=== PATIENT | female | born 1950 | race Caucasian/White ===

== ENCOUNTER 2021-01-27 09:12 | Outpatient (REF) | payer MEDICARE, SELFPAY ==
[2021-01-27 09:38] LABS: MANUAL DIFF FLAG NO
[2021-01-27 10:00] LABS: Basophils Percent Auto 0.5 % (0-2); Eosinophils Absolute Auto 0.2 X10*3/uL (0.0-0.4); Eosinophils Percent Auto 3.7 % (0-4); Hematocrit 40.4 % (37-47); Hemoglobin 13.9 g/dl (12.0-16.0); Imm Gran Abs Auto 0.01 X10*3/uL (0.00-0.03); Imm Gran Pct Auto 0.2 % (0.0-0.4); Lymphocytes Absolute Auto 2.1 X10*3/uL (1.2-4.9); Lymphocytes Percent Auto 32.7 % (20-40); Mean Corpuscular HGB Conc 34.4 g/dl (31.0-35.0); Mean Corpuscular Volume 101.8 fL (80-98); Mean Platelet Volume 9.6 fL (9.4-12.3); Monocytes Absolute Auto 0.6 X10*3/uL (0.1-1.2); Monocytes Percent Auto 8.6 % (2-11); Neutrophils Absolute Auto 3.5 X10*3/uL (2.0-8.3); Neutrophils Percent Auto 54.3 % (45-73); Platelet Count 261 X10*3/uL (160-400); Red Blood Count 3.97 X10*6/uL (4.20-5.50); Red Cell Distribution Width 12.2 % (11.0-16.0); White Blood Count 6.4 X10*3/uL (4.8-10.8)
[2021-01-27 10:13] LABS: Alanine Aminotransferase 15 U/L (0-31); Albumin Level 4.1 g/dL (3.5-5.0); Alkaline Phosphatase 55 U/L (39-117); Anion Gap 16 (12-20); Aspartate Amino Transferase 20 U/L (5-31); Bilirubin Total 0.8 mg/dL (0.0-1.0); Blood Urea Nitrogen 10 mg/dL (9-16); Calcium 9.9 mg/dL (8.4-10.2); Carbon Dioxide 29 mmol/L (22-29); Chloride 102 mmol/L (96-108); Cholesterol 199 mg/dL; Estimated Glomerular Filt Rate > 60; Glucose Fasting 85 mg/dL (60-99); HDL Cholesterol 99 mg/dL; LDL Cholesterol Calculated 93 mg/dl; Potassium 4.8 mmol/L (3.3-5.1); Sodium 142 mmol/L (135-145); Total Protein 6.5 g/dL (6.5-8.0); Triglycerides 37 mg/dL
== END 2021-01-27 09:13 | disposition home or self-care (01) ==
LOC: HO.LAB 09:12
PROVIDERS: PCP Internal Medicine Medical Oncology; Visit Provider Internal Medicine Medical Oncology
DX: D72.819 Decreased white blood cell count, unspecified (principal); E66.3 Overweight; K57.92 Diverticulitis of intestine, part unspecified, without perforation or abscess without bleeding
CPT/HCPCS: 36415; 80053; 80061; 85025

== ENCOUNTER 2022-02-01 08:45 | Outpatient (REF) | payer MEDICARE, SELFPAY ==
[2022-02-01 08:56] LABS: MANUAL DIFF FLAG NO
[2022-02-01 09:17] LABS: Basophils Percent Auto 0.6 % (0-2); Eosinophils Absolute Auto 0.2 X10*3/uL (0.0-0.4); Eosinophils Percent Auto 3.8 % (0-4); Imm Gran Abs Auto 0.01 X10*3/uL (0.00-0.03); Imm Gran Pct Auto 0.2 % (0.0-0.4); Lymphocytes Absolute Auto 2.4 X10*3/uL (1.2-4.9); Lymphocytes Percent Auto 45.2 % (20-40); Mean Corpuscular HGB Conc 34.1 g/dl (31.0-35.0); Mean Corpuscular Hemoglobin 34.3 pg (27.0-33.0); Mean Corpuscular Volume 100.5 fL (80.0-98.0); Mean Platelet Volume 9.5 fL (9.4-12.3); Monocytes Absolute Auto 0.5 X10*3/uL (0.1-1.2); Monocytes Percent Auto 8.7 % (2-11); Neutrophils Absolute Auto 2.2 x10*3/uL (2.0-8.3); Neutrophils Percent Auto 41.5 % (45-73); Platelet Count 261 X10*3/uL (160-400); Red Blood Count 4.08 X10*6/uL (4.20-5.50); Red Cell Distribution Width 12.1 % (11.0-16.0); White Blood Count 5.2 X10*3/uL (4.8-10.8)
[2022-02-01 09:48] LABS: Alanine Aminotransferase 17 U/L (0-31); Albumin Level 4.3 g/dL (3.5-5.0); Alkaline Phosphatase 59 U/L (39-117); Anion Gap 14 (12-20); Aspartate Amino Transferase 18 U/L (5-31); Bilirubin Total 0.5 mg/dL (0.0-1.0); Blood Urea Nitrogen 15 mg/dL (9-16); Calcium 9.8 mg/dL (8.4-10.2); Carbon Dioxide 29 mmol/L (22-29); Chloride 104 mmol/L (96-108); Cholesterol 217 mg/dL; Estimated Glomerular Filt Rate > 60; Glucose Fasting 90 mg/dL (60-99); HDL Cholesterol 93 mg/dL; LDL Cholesterol Calculated 115 mg/dl; Potassium 4.7 mmol/L (3.3-5.1); Sodium 142 mmol/L (135-145); Total Protein 7.1 g/dL (6.5-8.0); Triglycerides 46 mg/dL
[2022-02-01 10:07] LABS: Vitamin D 25-OH Total 50.4 ng/mL (>30)
== END 2022-02-01 08:46 | disposition home or self-care (01) ==
LOC: HO.LAB 08:45
PROVIDERS: PCP Internal Medicine Medical Oncology; Visit Provider Internal Medicine Medical Oncology
DX: E66.3 Overweight (principal); M85.80 Other specified disorders of bone density and structure, unspecified site
CPT/HCPCS: 36415; 80053; 80061; 82306; 85025

== ENCOUNTER 2022-05-17 10:49 | Outpatient (REF) | payer MEDICARE, SELFPAY ==
[2022-05-17 13:55] LABS: MANUAL DIFF FLAG NO
[2022-05-17 13:58] LABS: Basophils Percent Auto 0.6 % (0-2); Eosinophils Absolute Auto 0.2 X10*3/uL (0.0-0.4); Eosinophils Percent Auto 2.4 % (0-4); Hematocrit 42.4 % (37.0-47.0); Hemoglobin 14.8 g/dl (12.0-16.0); Imm Gran Abs Auto 0.02 X10*3/uL (0.00-0.03); Imm Gran Pct Auto 0.3 % (0.0-0.4); Lymphocytes Percent Auto 28.9 % (20-40); Mean Corpuscular HGB Conc 34.9 g/dl (31.0-35.0); Mean Corpuscular Hemoglobin 34.3 pg (27.0-33.0); Mean Corpuscular Volume 98.1 fL (80.0-98.0); Mean Platelet Volume 10.1 fL (9.4-12.3); Monocytes Absolute Auto 0.7 X10*3/uL (0.1-1.2); Monocytes Percent Auto 9.3 % (2-11); Neutrophils Absolute Auto 4.1 x10*3/uL (2.0-8.3); Neutrophils Percent Auto 58.5 % (45-73); Platelet Count 343 X10*3/uL (160-400); Red Blood Count 4.32 X10*6/uL (4.20-5.50); Red Cell Distribution Width 11.9 % (11.0-16.0)
[2022-05-17 16:21] LABS: Alanine Aminotransferase 15 U/L (0-31); Albumin Level 4.3 g/dL (3.5-5.0); Alkaline Phosphatase 64 U/L (39-117); Anion Gap 13 (12-20); Aspartate Amino Transferase 16 U/L (5-31); Bilirubin Total 1.1 mg/dL (0.0-1.0); Blood Urea Nitrogen 12 mg/dL (9-16); Calcium 10.1 mg/dL (8.4-10.2); Carbon Dioxide 28 mmol/L (22-29); Chloride 104 mmol/L (96-108); Cholesterol 202 mg/dL; Estimated Glomerular Filt Rate > 60; Glucose Fasting 91 mg/dL (60-99); HDL Cholesterol 76 mg/dL; LDL Cholesterol Calculated 112 mg/dl; Potassium 4.1 mmol/L (3.3-5.1); Sodium 141 mmol/L (135-145); Total Protein 6.9 g/dL (6.5-8.0); Triglycerides 72 mg/dL
== END 2022-05-17 10:50 | disposition home or self-care (01) ==
LOC: HO.10HDL 10:49
PROVIDERS: Visit Provider Internal Medicine Medical Oncology
DX: M85.80 Other specified disorders of bone density and structure, unspecified site (principal); M10.9 Gout, unspecified; E55.9 Vitamin D deficiency, unspecified
CPT/HCPCS: 36415; 80053; 80061; 82306; 85025

== ENCOUNTER 2022-08-02 10:25 | Outpatient (REF) | payer MEDICARE, SELFPAY ==
[2022-08-02 10:39] LABS: MANUAL DIFF FLAG NO
[2022-08-02 11:39] LABS: Basophils Percent Auto 0.8 % (0-2); Eosinophils Absolute Auto 0.2 X10*3/uL (0.0-0.4); Eosinophils Percent Auto 4.2 % (0-4); Hematocrit 41.1 % (37.0-47.0); Imm Gran Abs Auto 0.01 X10*3/uL (0.00-0.03); Imm Gran Pct Auto 0.2 % (0.0-0.4); Lymphocytes Absolute Auto 1.9 X10*3/uL (1.2-4.9); Lymphocytes Percent Auto 38.3 % (20-40); Mean Corpuscular HGB Conc 34.1 g/dl (31.0-35.0); Mean Corpuscular Hemoglobin 33.8 pg (27.0-33.0); Mean Corpuscular Volume 99.3 fL (80.0-98.0); Mean Platelet Volume 9.5 fL (9.4-12.3); Monocytes Absolute Auto 0.5 X10*3/uL (0.1-1.2); Monocytes Percent Auto 10.5 % (2-11); Neutrophils Absolute Auto 2.3 x10*3/uL (2.0-8.3); Platelet Count 261 X10*3/uL (160-400); Red Blood Count 4.14 X10*6/uL (4.20-5.50); Red Cell Distribution Width 12.7 % (11.0-16.0)
[2022-08-02 12:37] LABS: Alanine Aminotransferase 15 U/L (0-31); Albumin Level 4.1 g/dL (3.5-5.0); Alkaline Phosphatase 59 U/L (39-117); Anion Gap 10 (12-20); Aspartate Amino Transferase 18 U/L (5-31); Bilirubin Total 0.8 mg/dL (0.0-1.0); Blood Urea Nitrogen 15 mg/dL (9-16); Calcium 9.5 mg/dL (8.4-10.2); Carbon Dioxide 31 mmol/L (22-29); Chloride 104 mmol/L (96-108); Cholesterol 209 mg/dL; Estimated Glomerular Filt Rate > 60; Glucose Fasting 81 mg/dL (60-99); HDL Cholesterol 90 mg/dL; LDL Cholesterol Calculated 111 mg/dl; Potassium 4.3 mmol/L (3.3-5.1); Sodium 141 mmol/L (135-145); Total Protein 6.5 g/dL (6.5-8.0); Triglycerides 41 mg/dL
== END 2022-08-02 10:26 | disposition home or self-care (01) ==
LOC: HO.LAB 10:25
PROVIDERS: PCP Internal Medicine Medical Oncology; Visit Provider Internal Medicine Medical Oncology
DX: M85.80 Other specified disorders of bone density and structure, unspecified site (principal); E66.3 Overweight; M10.9 Gout, unspecified; D72.819 Decreased white blood cell count, unspecified
CPT/HCPCS: 36415; 80053; 80061; 85025

== ENCOUNTER 2022-10-10 12:24 | Outpatient (REF) | payer MEDICARE, SELFPAY ==
[2022-10-10 14:31] LABS: Appearance Urine Clear; Color Urine Yellow; Glucose Urine UA Negative (Negative); Leukocyte Esterase Urine Large (3+) (Negative); Nitrite Urine Negative (Negative); Specific Gravity - Urine 1.015 (1.005-1.025); UMIC TRIGGER UA YES; Urine Blood Trace (Negative); Urine Ketones Trace mg/dL (Negative); Urine Protein Trace mg/dL (Neg-Trace)
[2022-10-10 14:34] LABS: Bacteria Urine 4+ (None Seen); Hyaline Casts Urine 0-2 /LPF (0-2); RBC Urine 0-2 /HPF (0-2); Squamous Epithelial Cell Urine 0-2 /HPF (0-2); WBC Urine >50 /HPF (0-5)
== END 2022-10-10 12:25 | disposition home or self-care (01) ==
LOC: HO.LAB 12:24
PROVIDERS: PCP Internal Medicine Medical Oncology; Visit Provider Internal Medicine Medical Oncology
DX: R31.9 Hematuria, unspecified (principal)
CPT/HCPCS: 81001; 87086; 87088; 87186

== ENCOUNTER 2023-12-25 11:44 | Outpatient (REF) | payer MEDICARE, SELFPAY ==
[2023-12-25 13:30] LABS: Appearance Urine Clear; Color Urine Yellow; Glucose Urine UA Negative (Negative); Leukocyte Esterase Urine Negative (Negative); Nitrite Urine Negative (Negative); PH 6.5 (5.0-9.0); Specific Gravity - Urine <= 1.005 (1.005-1.025); Urine Blood Negative (Negative); Urine Ketones Negative (Negative); Urine Protein Negative (Neg-Trace)
[2023-12-25 13:31] LABS: MANUAL DIFF FLAG NO
[2023-12-25 13:47] LABS: Basophils Percent Auto 0.3 % (0-2); Eosinophils Absolute Auto 0.1 X10*3/uL (0.0-0.4); Hematocrit 40.7 % (37.0-47.0); Hemoglobin 14.1 g/dl (12.0-16.0); Imm Gran Abs Auto 0.02 X10*3/uL (0.00-0.03); Imm Gran Pct Auto 0.3 % (0.0-0.4); Lymphocytes Absolute Auto 1.8 X10*3/uL (1.2-4.9); Lymphocytes Percent Auto 26.3 % (20-40); Mean Corpuscular HGB Conc 34.6 g/dl (31.0-35.0); Mean Corpuscular Hemoglobin 34.8 pg (27.0-33.0); Mean Corpuscular Volume 100.5 fL (80.0-98.0); Monocytes Absolute Auto 0.7 X10*3/uL (0.1-1.2); Monocytes Percent Auto 9.9 % (2-11); Neutrophils Absolute Auto 4.4 x10*3/uL (2.0-8.3); Neutrophils Percent Auto 62.2 % (45-73); Platelet Count 269 X10*3/uL (160-400); Red Blood Count 4.05 X10*6/uL (4.20-5.50); Red Cell Distribution Width 12.5 % (11.0-16.0)
[2023-12-25 14:22] LABS: Alanine Aminotransferase 11 U/L (0-31); Albumin Level 4.3 g/dL (3.5-5.0); Alkaline Phosphatase 61 U/L (39-117); Anion Gap 12 (12-20); Aspartate Amino Transferase 14 U/L (5-31); Bilirubin Total 0.7 mg/dL (0.0-1.0); Blood Urea Nitrogen 10 mg/dL (9-16); Calcium 10.3 mg/dL (8.4-10.2); Carbon Dioxide 28 mmol/L (22-29); Chloride 104 mmol/L (96-108); Estimated Glomerular Filt Rate > 60; Glucose Random 92 mg/dL (60-115); Potassium 4.4 mmol/L (3.3-5.1); Sodium 140 mmol/L (135-145); Total Protein 7.1 g/dL (6.5-8.0)
== END 2023-12-25 11:45 | disposition home or self-care (01) ==
LOC: HO.10HDL 11:44
PROVIDERS: Visit Provider Internal Medicine Medical Oncology
DX: R10.9 Unspecified abdominal pain (principal)
CPT/HCPCS: 36415; 80053; 81003; 85025; 87086

== ENCOUNTER 2024-02-09 10:32 | Outpatient (REF) | payer MEDICARE, SELFPAY ==
[2024-02-09 10:49] LABS: MANUAL DIFF FLAG NO
[2024-02-09 11:34] LABS: Basophils Percent Auto 0.3 % (0-2); Eosinophils Absolute Auto 0.2 X10*3/uL (0.0-0.4); Eosinophils Percent Auto 2.9 % (0-4); Hematocrit 39.9 % (37.0-47.0); Hemoglobin 13.9 g/dl (12.0-16.0); Imm Gran Abs Auto 0.02 X10*3/uL (0.00-0.03); Imm Gran Pct Auto 0.3 % (0.0-0.4); Lymphocytes Absolute Auto 1.5 X10*3/uL (1.2-4.9); Lymphocytes Percent Auto 25.3 % (20-40); Mean Corpuscular HGB Conc 34.8 g/dl (31.0-35.0); Mean Corpuscular Hemoglobin 34.9 pg (27.0-33.0); Mean Corpuscular Volume 100.3 fL (80.0-98.0); Mean Platelet Volume 9.2 fL (9.4-12.3); Monocytes Absolute Auto 0.7 X10*3/uL (0.1-1.2); Monocytes Percent Auto 10.9 % (2-11); Neutrophils Absolute Auto 3.6 x10*3/uL (2.0-8.3); Neutrophils Percent Auto 60.3 % (45-73); Platelet Count 252 X10*3/uL (160-400); Red Blood Count 3.98 X10*6/uL (4.20-5.50); Red Cell Distribution Width 12.7 % (11.0-16.0); White Blood Count 5.9 X10*3/uL (4.8-10.8)
[2024-02-09 11:39] LABS: Alanine Aminotransferase 20 U/L (0-31); Albumin Level 4.1 g/dL (3.5-5.0); Alkaline Phosphatase 67 U/L (39-117); Anion Gap 13 (12-20); Aspartate Amino Transferase 19 U/L (5-31); Bilirubin Total 0.9 mg/dL (0.0-1.0); Blood Urea Nitrogen 12 mg/dL (9-16); Calcium 9.9 mg/dL (8.4-10.2); Carbon Dioxide 29 mmol/L (22-29); Chloride 104 mmol/L (96-108); Cholesterol 212 mg/dL (<200); Estimated Glomerular Filt Rate > 60; Glucose Fasting 92 mg/dL (60-99); HDL Cholesterol 99 mg/dL (>40); LDL Cholesterol Calculated 104 mg/dL (<100); Potassium 4.7 mmol/L (3.3-5.1); Sodium 141 mmol/L (135-145); Total Protein 6.7 g/dL (6.5-8.0); Triglycerides 46 mg/dL (<150)
[2024-02-09 11:55] LABS: Vitamin D 25-OH Total 46.6 ng/mL (>30)
== END 2024-02-09 10:33 | disposition home or self-care (01) ==
LOC: HO.LAB 10:32
PROVIDERS: PCP Internal Medicine Medical Oncology; Visit Provider Internal Medicine Medical Oncology
DX: E66.3 Overweight (principal); E55.9 Vitamin D deficiency, unspecified
CPT/HCPCS: 36415; 80053; 80061; 82306; 85025

== ENCOUNTER 2024-06-11 11:54 | Outpatient (REF) | payer MEDICARE, SELFPAY ==
[2024-06-11 13:02] LABS: MANUAL DIFF FLAG NO
[2024-06-11 13:19] LABS: Basophils Absolute Auto 0.1 X10*3/uL (0.0-0.2); Basophils Percent Auto 0.7 % (0-2); Eosinophils Absolute Auto 0.2 X10*3/uL (0.0-0.4); Eosinophils Percent Auto 3.3 % (0-4); Hematocrit 40.9 % (37.0-47.0); Hemoglobin 14.2 g/dl (12.0-16.0); Imm Gran Abs Auto 0.01 X10*3/uL (0.00-0.03); Imm Gran Pct Auto 0.1 % (0.0-0.4); Lymphocytes Absolute Auto 2.3 X10*3/uL (1.2-4.9); Lymphocytes Percent Auto 31.9 % (20-40); Mean Corpuscular HGB Conc 34.7 g/dl (31.0-35.0); Mean Corpuscular Hemoglobin 34.3 pg (27.0-33.0); Mean Corpuscular Volume 98.8 fL (80.0-98.0); Mean Platelet Volume 9.3 fL (9.4-12.3); Monocytes Absolute Auto 0.6 X10*3/uL (0.1-1.2); Monocytes Percent Auto 7.6 % (2-11); Neutrophils Absolute Auto 4.1 x10*3/uL (2.0-8.3); Neutrophils Percent Auto 56.4 % (45-73); Platelet Count 274 X10*3/uL (160-400); Red Blood Count 4.14 X10*6/uL (4.20-5.50); Red Cell Distribution Width 12.1 % (11.0-16.0); White Blood Count 7.3 X10*3/uL (4.8-10.8)
[2024-06-11 13:43] LABS: Alanine Aminotransferase 19 U/L (0-31); Albumin Level 4.3 g/dL (3.5-5.0); Alkaline Phosphatase 57 U/L (39-117); Anion Gap 9 (12-20); Aspartate Amino Transferase 22 U/L (5-31); Bilirubin Total 0.6 mg/dL (0.0-1.0); Blood Urea Nitrogen 13 mg/dL (9-16); Calcium 9.3 mg/dL (8.4-10.2); Carbon Dioxide 29 mmol/L (22-29); Chloride 107 mmol/L (96-108); Cholesterol 202 mg/dL (<200); Estimated Glomerular Filt Rate > 60; Glucose Fasting 84 mg/dL (60-99); HDL Cholesterol 95 mg/dL (>40); LDL Cholesterol Calculated 95 mg/dL (<100); Potassium 4.2 mmol/L (3.3-5.1); Sodium 141 mmol/L (135-145); Triglycerides 61 mg/dL (<150)
[2024-06-11 14:13] LABS: Uric Acid 7.2 mg/dL (2.4-5.7)
== END 2024-06-11 11:55 | disposition home or self-care (01) ==
LOC: HO.10HDL 11:54
PROVIDERS: Visit Provider Internal Medicine Medical Oncology
DX: E66.9 Obesity, unspecified (principal); M10.9 Gout, unspecified
CPT/HCPCS: 36415; 80053; 80061; 84550; 85025

== ENCOUNTER 2024-12-09 10:53 | Outpatient (REF) | payer MEDICARE, SELFPAY ==
[2024-12-09 11:08] LABS: MANUAL DIFF FLAG NO
[2024-12-09 11:53] LABS: Hematocrit 42.4 % (37.0-47.0); Hemoglobin 14.6 g/dl (12.0-16.0); Imm Gran Abs Auto 0.02 X10*3/uL (0.00-0.03); Imm Gran Pct Auto 0.3 % (0.0-0.4); Lymphocytes Absolute Auto 1.7 X10*3/uL (1.2-4.9); Mean Corpuscular HGB Conc 34.4 g/dl (31.0-35.0); Mean Corpuscular Hemoglobin 34.0 pg (27.0-33.0); Mean Corpuscular Volume 98.8 fL (80.0-98.0); NRBC Abs Auto 0.000 X10*3/uL (0.0-0.012); NRBC Pct Auto 0.0 /100WBC (0.0-0.2); Platelet Count 256 X10*3/uL (160-400); Red Blood Count 4.29 X10*6/uL (4.20-5.50); White Blood Count 6.3 X10*3/uL (4.8-10.8)
--- OUTSIDE RECORDS SUMMARY | 2024-12-09 11:54 | XMS_ITS | Patient Health Record ---
Author Organization Obie Kulkarni III, MD Address [address] [place] [address] Care Team Providers Care Cant Hooker Name Role Phone Obie Kulkarni Primary Care Provider [phone] Allergies Allergen (clinical drug ingredient) Drug/Non Drug Allergy documented on EMR Reaction Allergy Type Onset Date Status No Known Drug Allergy Unknown Drug Allergy Active Results Component Value Reference Range Notes Urine Culture Reviewed date:12/28/2023 11:19:58 AM Interpretation: Performing Lab:[facility], [address] [place] [phone] Notes/Report: Urine Culture No growth. URINE DIP STICK Reviewed date:02/15/2024 09:47:35 AM Interpretation: Performing Lab: Notes/Report: SG 1.015 1.005 - 1.025 pH 6.0 5.0 - 9.0 PAULY Negative Negative - NIT Negative Negative - PRO 15 Negative - Trace GLU Negative Negative - KET Negative Negative - UBG 0.2 0.1 - 1.8 SUSAN Negative 0.2 - 1.3 BLD Negative Negative - Menstrating No Uric Acid Reviewed date:06/13/2024 01:05:41 PM Interpretation: Performing Lab:[address] [phone] Notes/Report: Uric Acid 7.2 2.4-5.7 mg/dL Lipid Panel Reviewed date:06/13/2024 01:05:41 PM Interpretation: Performing Lab:[facility], [address] [place] [phone] Notes/Report: Triglycerides 61 <150 mg/dL Desirable Triglyceride: less than 150 mg/dL Borderline High Triglyceride 150-199 mg/dL High Triglyceride: 200-499 mg/dL Very High Triglyceride: greater than or equal to 5OO mg/dL Cholesterol 202 <200 mg/dL Desirable Cholesterol: less than 200 mg/dL Borderline High Cholesterol: 200-239 mg/dL High Cholesterol: greater than 239 mg/dL LDL Cholesterol Calculated 95 <100 mg/dL Desirable LDL: less than 100 mg/dL Near Optimal/Above Optimal LDL: 110-129 mg/dL Borderline High LDL: 130-159 mg/dL High LDL: 160-189 mg/dL Very High LDL: greater than or equal to 190 mg/dL HDL Cholesterol 95 >40 mg/dL Desirable HDL: greater than 40 mg/dL Note: This HDL assay may give artificially low results in patients with liver disease. Complete Blood Count Auto Di ff Reviewed date:12/28/2023 11:19:58 AM Interpretation: Performing Lab:[facility], [address] [place] [phone] Notes/Report: White Blood Count 7.0 4.8-10.8 X10*3/uL Red Blood Count 4.05 4.20-5.50 X10*6/uL Hemoglobin 14.1 12.0-16.0 g/dl Hematocrit 40.7 37.0-47.0 % Mean Corpuscular Volume 100.5 80.0-98.0 fL Mean Corpuscular Hemoglobin 34.8 27.0-33.0 pg Mean Corpuscular HGB Conc 34.6 31.0-35.0 g/dl Red Cell Distribution Width 12.5 11.0-16.0 % Platelet Count 269 160-400 X10*3/uL Mean Platelet Volume 10.0 9.4-12.3 fL Neutrophils Percent Auto 62.2 45-73 % Imm Gran Pct Auto 0.3 0.0-0.4 % Lymphocytes Percent Auto 26.3 20-40 % Monocytes Percent Auto 9.9 2-11 % Eosinophils Percent Auto 1.0 0-4 % Basophils Percent Auto 0.3 0-2 % NRBC Pct Auto 0.0 0.0-0.2 /100WBC Neutrophils Absolute Auto 4.4 2.0-8.3 x10*3/u L Imm Gran Abs Auto 0.02 0.00-0.03 X10*3/uL Lymphocytes Absolute Auto 1.8 1.2-4.9 X10*3/u L Monocytes Absolute Auto 0.7 0.1-1.2 X10*3/uL Eosinophils Absolute Auto 0.1 0.0-0.4 X10*3/u L Basophils Absolute Auto 0.0 0.0-0.2 X10*3/uL NRBC Abs Auto 0.000 0.0-0.012 X10*3/uL Urinalysis Reviewed date:12/28/2023 11:19:58 AM Interpretation: Performing Lab:[facility], [address] [place] [phone] Notes/Report: Color Urine Yellow Appearance Urine Clear PH 6.5 5.0-9.0 Glucose Urine UA Negative Negative mg/dL Urine Blood Negative Negative Specific [place] - Urine <= 1.005 1.005-1.025 Urine Protein Negative Neg-Trace mg/dL Urine Ketones Negative Negative mg/dL Nitrite Urine Negative Negative Leukocyte Esterase Urine Negative Negative Comprehensive Met. Panel Reviewed date:12/28/2023 11:19:58 AM Interpretation: Performing Lab:[facility], [address] [place] [phone] Notes/Report: Sodium 140 135-145 mmol/L Potassium 4.4 3.3-5.1 mmol/L Chloride 104 96-108 mmol/L Carbon Dioxide 28 22-29 mmol/L Anion Gap 12 12-20 Blood Urea Nitrogen 10 9-16 mg/dL Creatinine 0.76 0.5-1.4 mg/dL Estimated Glomerular Filt Rate > 60 NOTE: For -Somali individuals, multiply the result by 1.210. Chronic Kidney Disease: Estimated GFR < 60 mL/min/1.73m2 Severe Kidney Disease: Estimated GFR < 15 mL/min/1.73m2 Glucose Random 92 60-115 mg/dL Calcium 10.3 8.4-10.2 mg/dL Bilirubin Total 0.7 0.0-1.0 mg/dL Aspartate Amino Transferase 14 5-31 U/L Alanine Aminotransferase 11 0-31 U/L Total Protein 7.1 6.5-8.0 g/dL Albumin Level 4.3 3.5-5.0 g/dL Alkaline Phosphatase 61 39-117 U/L Complete Blood Count Auto Di ff Reviewed date:02/10/2024 08:41:10 PM Interpretation: Performing Lab:[facility], [address] [place] [phone] Notes/Report: White Blood Count 5.9 4.8-10.8 X10*3/uL Red Blood Count 3.98 4.20-5.50 X10*6/uL Hemoglobin 13.9 12.0-16.0 g/dl Hematocrit 39.9 37.0-47.0 % Mean Corpuscular Volume 100.3 80.0-98.0 fL Mean Corpuscular Hemoglobin 34.9 27.0-33.0 pg Mean Corpuscular HGB Conc 34.8 31.0-35.0 g/dl Red Cell Distribution Width 12.7 11.0-16.0 % Platelet Count 252 160-400 X10*3/uL Mean Platelet Volume 9.2 9.4-12.3 fL Neutrophils Percent Auto 60.3 45-73 % Imm Gran Pct Auto 0.3 0.0-0.4 % Lymphocytes Percent Auto 25.3 20-40 % Monocytes Percent Auto 10.9 2-11 % Eosinophils Percent Auto 2.9 0-4 % Basophils Percent Auto 0.3 0-2 % NRBC Pct Auto 0.0 0.0-0.2 /100WBC Neutrophils Absolute Auto 3.6 2.0-8.3 x10*3/u L Imm Gran Abs Auto 0.02 0.00-0.03 X10*3/uL Lymphocytes Absolute Auto 1.5 1.2-4.9 X10*3/u L Monocytes Absolute Auto 0.7 0.1-1.2 X10*3/uL Eosinophils Absolute Auto 0.2 0.0-0.4 X10*3/u L Basophils Absolute Auto 0.0 0.0-0.2 X10*3/uL NRBC Abs Auto 0.000 0.0-0.012 X10*3/uL Comprehensive Jolon. Panel Fa st Reviewed date:02/10/2024 08:41:10 PM Interpretation: Performing Lab:[facility], [address] [place] [phone] Notes/Report: Sodium 141 135-145 mmol/L Potassium 4.7 3.3-5.1 mmol/L Chloride 104 96-108 mmol/L Carbon Dioxide 29 22-29 mmol/L Anion Gap 13 12-20 Blood Urea Nitrogen 12 9-16 mg/dL Creatinine 0.74 0.5-1.4 mg/dL Estimated Glomerular Filt Rate > 60 NOTE: For -Somali individuals, multiply the result by 1.210. Chronic Kidney Disease: Estimated GFR < 60 mL/min/1.73m2 Severe Kidney Disease: Estimated GFR < 15 mL/min/1.73m2 Glucose Fasting 92 60-99 mg/dL Calcium 9.9 8.4-10.2 mg/dL Bilirubin Total 0.9 0.0-1.0 mg/dL Aspartate Amino Transferase 19 5-31 U/L Alanine Aminotransferase 20 0-31 U/L Total Protein 6.7 6.5-8.0 g/dL Albumin Level 4.1 3.5-5.0 g/dL Alkaline Phosphatase 67 39-117 U/L Lipid Panel Reviewed date:02/10/2024 08:41:10 PM Interpretation: Performing Lab:[address] [phone] Notes/Report: Triglycerides 46 <150 mg/dL Desirable Triglyceride: less than 150 mg/dL Borderline High Triglyceride 150-199 mg/dL High Triglyceride: 200-499 mg/dL Very High Triglyceride: greater than or equal to 5OO mg/dL Cholesterol 212 <200 mg/dL Desirable Cholesterol: less than 200 mg/dL Borderline High Cholesterol: 200-239 mg/dL High Cholesterol: greater than 239 mg/dL LDL Cholesterol Calculated 104 <100 mg/dL Desirable LDL: less than 100 mg/dL Near Optimal/Above Optimal LDL: 110-129 mg/dL Borderline High LDL: 130-159 mg/dL High LDL: 160-189 mg/dL Very High LDL: greater than or equal to 190 mg/dL HDL Cholesterol 99 >40 mg/dL Desirable HDL: greater than 40 mg/dL Note: This HDL assay may give artificially low results in patients with liver disease. Vitamin D 25-OH Total Reviewed date:02/10/2024 08:41:10 PM Interpretation: Performing Lab:[address] [place] [phone] Notes/Report: Vitamin D 25-OH Total 46.6 >30 ng/mL Health Based Reference Values* < 20 ng/mL Deficient 20-30 ng/mL Insufficient > 30 ng/mL Sufficient *Isaiah BRITT. N Engl J Med. 2007;357:266-280 Care must be taken in interpreting Vitamin D results from different laboratories and methodologies. Published data demonstrated that results from patients undergoing hemodialysis may show a negative bias when tested with various automated 25-OH vitamin D assays when compared to LC-MS/MS. When testing samples from patients whose predominant form of Vitamin D is Vitamin D2, such as patients receiving Vitamin D2 supplementation, results that are subtherapeutic should be confirmed with another method such as LC-MS/MS. MAMMOGRAM DIGITAL BILATERAL SCREEN Reviewed date:02/15/2024 09:44:35 AM Interpretation:undefined Performing Lab: Notes/Report: undefined Complete Blood Count Auto Di ff Reviewed date:06/13/2024 01:05:41 PM Interpretation: Performing Lab:[facility], [address] [place] [phone] Notes/Report: White Blood Count 7.3 4.8-10.8 X10*3/uL Red Blood Count 4.14 4.20-5.50 X10*6/uL Hemoglobin 14.2 12.0-16.0 g/dl Hematocrit 40.9 37.0-47.0 % Mean Corpuscular Volume 98.8 80.0-98.0 fL Mean Corpuscular Hemoglobin 34.3 27.0-33.0 pg Mean Corpuscular HGB Conc 34.7 31.0-35.0 g/dl Red Cell Distribution Width 12.1 11.0-16.0 % Platelet Count 274 160-400 X10*3/uL Mean Platelet Volume 9.3 9.4-12.3 fL Neutrophils Percent Auto 56.4 45-73 % Imm Gran Pct Auto 0.1 0.0-0.4 % Lymphocytes Percent Auto 31.9 20-40 % Monocytes Percent Auto 7.6 2-11 % Eosinophils Percent Auto 3.3 0-4 % Basophils Percent Auto 0.7 0-2 % NRBC Pct Auto 0.0 0.0-0.2 /100WBC Neutrophils Absolute Auto 4.1 2.0-8.3 x10*3/u L Imm Gran Abs Auto 0.01 0.00-0.03 X10*3/uL Lymphocytes Absolute Auto 2.3 1.2-4.9 X10*3/u L Monocytes Absolute Auto 0.6 0.1-1.2 X10*3/uL Eosinophils Absolute Auto 0.2 0.0-0.4 X10*3/u L Basophils Absolute Auto 0.1 0.0-0.2 X10*3/uL NRBC Abs Auto 0.000 0.0-0.012 X10*3/uL Comprehensive Jolon. Panel Fa st Reviewed date:06/13/2024 01:05:41 PM Interpretation: Performing Lab:[facility], [address] [place] [phone] Notes/Report: Sodium 141 135-145 mmol/L Potassium 4.2 3.3-5.1 mmol/L Chloride 107 96-108 mmol/L Carbon Dioxide 29 22-29 mmol/L Anion Gap 9 12-20 Blood Urea Nitrogen 13 9-16 mg/dL Creatinine 0.72 0.5-1.4 mg/dL Estimated Glomerular Filt Rate > 60 Chronic Kidney Disease: Estimated GFR < 60 mL/min/1.73m2 Severe Kidney Disease: Estimated GFR < 15 mL/min/1.73m2 Glucose Fasting 84 60-99 mg/dL Calcium 9.3 8.4-10.2 mg/dL Bilirubin Total 0.6 0.0-1.0 mg/dL Aspartate Amino Transferase 22 5-31 U/L Alanine Aminotransferase 19 0-31 U/L Total Protein 7.0 6.5-8.0 g/dL Albumin Level 4.3 3.5-5.0 g/dL Alkaline Phosphatase 57 39-117 U/L Reason For Referral No Information Medications Medication SIG (Take, Route, Frequency, Duration) Notes Start Date End Date Status All Day Calcium 600-500 MG-UNIT 2 tablets with food Orally Once a day Active [employer] Vitamin C Active Cranberry 405 MG as directed Orally Active Garlic 100 MG as directed Orally Active Vitamin D Active B Complex as directed Orally A ctive [facility] Lecithin 1200 MG as directed Orally Active Nystatin 175654 UNIT/ML 4 mL Mouth/Throa t Four times a day 04/11/2024 Active metroNIDAZOLE 500 MG 1 tablet Orally Thr ee times a day 12/04/2024 Active Nystatin 995799 UNIT/ML 4 mL po swish an d swallow Four times a day 06/11/2024 Active Ciprofloxacin HCl 500 MG 1 tablet Orally every 12 hrs 12/04/2024 Active [facility] Vitamin E 200 UNIT 1 capsule Orally Once a day Active Immunizations Vaccine Route Administration Date Status Comme nts Influenza Unknown 12/21/2012 Administered Influenza Unknown 03/01/2014 Administered Influenza Unknown 02/17/2015 Administered Pneumococcal Unknown 02/17/2015 Administered Influenza Unknown 02/23/2016 Administered Influenza no Preserv 3 and > Unknown 01/13/2020 Administered COVID- 19 Vaccine Unknown 07/08/2020 Administered COVID- 19 Vaccine Unknown 07/29/2020 Administered Influenza, quad Unknown 02/02/2021 Administered COVID- 19 Vaccine IM Intramuscular 03/31/2021 Administered Covid vaccine Pfizer given COVID PFIZER Unknown 09/09/2021 Administered PCV13 Unknown 02/25/2017 Administered PPV 23 Unknown 05/02/2018 Administered Influenza High Dose Quadrivalent Unknown 01/19/2023 Administered COVID Pfizer Bivalent Unknown 10/03/2022 Administered COVID Pfizer Bivalent Unknown 02/11/2022 Administered COVID PFIZER Unknown 07/29/2020 Administered FLuzone HD PF Unknown 01/13/2020 Administered Tdap Unknown 01/27/2021 Administered Influenza High Dose Quadrivalent Unknown 01/27/2021 Administered COVID PFIZER Unknown 03/31/2021 Administered Influenza High Dose Quadrivalent Unknown 01/27/2022 Administered COVID PFIZER Unknown 07/08/2020 Administered COMIRNATY Pfizer-BioNTech Unknown 02/08/2024 Administered Social History Tobacco Use: Social History Observation Description Date Details (start date - stop date) Never Smoker NA - NA Sex Assigned At : Social History Observation Description Sex Assigned At Female Tobacco Use/Smoking Question Answer Notes Patient is a nonsmoker Additional Findings: Tobacco Non-User Aggressive non-smoker Alcohol Screen Question Answer Notes Did you have a drink containing alcohol in the p ast year? No Points 0 Interpretation Negative Problems Problem Type SNOMED Code ICD Code Onset Dates Problem Status W/U Status Risk Notes Problem 099456891 Overweight (E66.3) Active confirmed She is very slightly overweight. She will continue to maintain her weight at this level and exercise regularly. She will consume a healthy diet low in sodium animal fat and calories. Problem 42483405 Gout (M10.9) Active confirmed Her uric acid level is 7.2. He has no history of kidney stones and has her last attack of gout 3 years ago. She will be observed without medication at this time. She does not wish to take medication at this time. Problem 268760373 Osteopenia (M85.80) Active confirmed She was continued on her calcium. Problem 254228759 Transient cerebral ischemia, unspecified type (G45.9) Active confirmed She has a history of TIA in the past. Her neurological examination today is intact. The episode of vertigo yesterday is most likely benign positional vertigo, but she will be observed very carefully. If necessary, an MRI of the brain can be done if further symptoms evolve. Problem 415102217 Diverticulitis (K57.92) Active confirmed She was treated with ciprofloxacin for diverticulitis. A follow-up visit was arranged. She was instructed on diet and activities.She is rapidly improving Problem Vitamin D insufficiency (E55.9) Active confirmed She has been continued on vitamin D supplements as well as calcium carbonate tablets twice daily. He has been compliant with the recommendation. 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 Problem 47585470 Thrush, oral (B37.0) Active confirmed The oral thrush rapidly resolved with nystatin and has not returned. This will be removed from the problem list. Vital Signs Heart Rate 75 /min 12/04/2024 Temperature 97.7 degrees Fahrenheit 12/04/2024 Blood pressure diastolic 78 mm Hg 12/04/2024 Height 63 in 12/04/2024 Blood pressure systolic 128 mm Hg 12/04/2024 Weight 143 lbs 12/04/2024 BMI 25.33 kg/m2 12/04/2024 Encounters Encounter Location Date Provider Diagnosis Obie Kulkarni III, MD [address] [place] [address] [place] [phone] 12/25/2023 Obie Kulkarni Encounter for screen ing mammogram for malignant neoplasm of breast Z12.31 ; Sigmoid diverticulitis K57.32 ; Osteopenia M85.80 ; Overweight E66.3 ; Gout M10.9 and Benign paroxysmal positional vertigo due to bilateral vestibular disorder H81.13 Obie Kulkarni III, MD [address] [place] [address] [place] [address] 12/28/2023 Obie Kulkarni Encounter for screen ing mammogram for malignant neoplasm of breast Z12.31 ; Diverticulitis K57.92 ; Gout M10.9 ; Overweight E66.3 and Osteopenia M85.80 Obie Kulkarni III, MD [address] [place] [address] [place] [address] 02/15/2024 Obie Kulkarni Encounter for screen ing mammogram for malignant neoplasm of breast Z12.31 ; Osteopenia M85.80 ; Transient cerebral ischemia, unspecified type G45.9 ; Overweight E66.3 ; Gout M10.9 ; Benign paroxysmal positional vertigo due to bilateral vestibular disorder H81.13 ; Vitamin D insufficiency E55.9 and Gout, unspecified M10.9 Obie Kulkarni III, MD [address] [place] [address] [place] [address] 04/11/2024 Obie Kulkarni Oral mucosal lesion K13.70 ; Overweight E66.3 ; Gout M10.9 ; 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 and Osteopenia M85.80 Obie Kulkarni III, MD [address] [place] [address] [place] [address] 04/19/2024 Obie Kulkarni Oral mucosal lesion K13.70 ; Osteopenia M85.80 ; Overweight E66.3 and Gout M10.9 Obie Kulkarni III, MD [address] [place] [address] [place] [address] 06/11/2024 Obie Kulkarni Osteopenia M85.80 ; Thrush, oral B37.0 ; Gout M10.9 ; Transient cerebral ischemia, unspecified type G45.9 ; 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 and Vitamin D insufficiency E55.9 Obie Kulkarni III, MD [address] [place] [address] [place] [address] 08/13/2024 Obie Kulkarni Thrush, oral B37.0 ; Overweight E66.3 ; Vitamin D insufficiency E55.9 and Gout M10.9 Obie Kulkarni III, MD [address] [place] [address] [place] [address] 12/04/2024 Obie Kulkarni Diverticulitis K57.9 2 ; Osteopenia M85.80 ; Gout M10.9 ; Vitamin D insufficiency E55.9 and Overweight E66.3 Obie Kulkarni III, MD [address] [place] [address] [place] [address] 12/06/2024 Obie Kulkarni Diverticulitis K57.9 2 ; Vitamin D insufficiency E55.9 ; Benign paroxysmal positional vertigo due to bilateral vestibular disorder H81.13 ; Overweight E66.3 ; Gout M10.9 and Osteopenia M85.80 Obie Kulkarni III, MD [address] [place] [address] [place] [address] 12/09/2024 Obie Kulkarni Diverticulitis K57.9 2 ; Overweight E66.3 and Macrocytic anemia D53.9 Obie Kulkarni III, MD [address] [place] [address] [place] [address] 12/14/2023 Obie Macielne Screening due Z13.9 Assessments Encounter Date Diagnosis (ICD Code) Assessment Notes Treat ment Notes Treatment Clinical Notes 12/25/2023 Encounter for screening mammogram for malignant neoplasm of breast (ICD-10 - Z12.31) Her annual screening mammogram has been scheduled. 12/25/2023 Sigmoid diverticulitis (ICD-10 - K57.32) She has a prescription for 7 days of ciprofloxacin and metronidazole. A follow-up visit was arranged in 48 hours. 12/28/2023 Encounter for screening mammogram for malignant neoplasm of breast (ICD-10 - Z12.31) Her annual screening mammogram has been scheduled. 12/28/2023 Diverticulitis (ICD-10 - K57.92) Her symptoms have resolved. She will finish the antibiotics. She will return to the office immediately if they return. 02/15/2024 Encounter for screening mammogram for malignant neoplasm of breast (ICD-10 - Z12.31) Her annual screening mammogram has been scheduled. 02/15/2024 Osteopenia (ICD-10 - M85.80) She was continued on her calcium. 04/11/2024 Overweight (ICD-10 - E66.3) She remains very slightly overweight. We have discussed diet and nutrition today. 04/11/2024 Oral mucosal lesion (ICD-10 - K13.70) The base of the frenulum was slightly edematous and the white patch on his right side was serpentine but not ulcerated, and not hard or painful. Etiology was unclear. She is going to use bicarbonate rinses 4 times a day followed by nystatin liquid. Followup in 7 days was arranged. If it does not clear entities such as neoplasm or lichen planus will be considered and ENT will be consulted. It did not appear to be an aphthous ulcer. 04/19/2024 Osteopenia (ICD-10 - M85.80) She was continued on her calcium. 04/19/2024 Oral mucosal lesion (ICD-10 - K13.70) Her overall complaints have resolved. She says the area under her tongue has returned to normal. She will complete the nystatin. This is consistent with thrush 06/11/2024 Osteopenia (ICD-10 - M85.80) She was continued on her calcium. 06/11/2024 Thrush, oral (ICD-10 - B37.0) She was treated with nystatin. 08/13/2024 Overweight (ICD-10 - E66.3) She is very slightly overweight. She will continue to maintain her weight at this level and exercise regularly. She will consume a healthy diet low in sodium animal fat and calories. 08/13/2024 Thrush, oral (ICD-10 - B37.0) The oral thrush rapidly resolved with nystatin and has not returned. This will be removed from the problem list. 12/04/2024 Osteopenia (ICD-10 - M85.80) She was continued on her calcium. 12/04/2024 Diverticulitis (ICD-10 - K57.92) She was treated with ciprofloxacin for diverticulitis. A follow-up visit was arranged. She was instructed on diet and activities. 12/06/2024 Diverticulitis (ICD-10 - K57.92) She was treated with ciprofloxacin for diverticulitis. A follow-up visit was arranged. She was instructed on diet and activities.She is rapidly improving 12/06/2024 Vitamin D insufficiency (ICD-10 - E55.9) She has been continued on vitamin D supplements as well as calcium carbonate tablets twice daily. He has been compliant with the recommendation. 12/09/2024 Diverticulitis (ICD-10 - K57.92) 12/14/2023 Screening due (ICD-1 0 - Z13.9) 12/25/2023 Osteopenia (ICD-10 - M85.80) She was continued on her calcium. 12/28/2023 Gout (ICD-10 - M10.9) No attacks of gout have occurred since her last visit. 02/15/2024 Transient cerebral ischemia, unspecified type (ICD-10 - G45.9) She has a history of TIA in the past. Her neurological examination today is intact. The episode of vertigo yesterday is most likely benign positional vertigo, but she will be observed very carefully. If necessary, an MRI of the brain can be done if further symptoms evolve. 04/11/2024 Gout (ICD-10 - M10.9) No attacks of gout have occurred since her last visit. 04/19/2024 Overweight (ICD-10 - E66.3) She remains very slightly overweight. We have discussed diet and nutrition today. 06/11/2024 Gout (ICD-10 - M10.9) Her uric a stephanie level is 7.2. He has no history of kidney stones and has her last attack of gout 3 years ago. She will be observed without medication at this time. She does not wish to take medication at this time. 08/13/2024 Vitamin D insufficiency (ICD-10 - E55.9) She has been continued on vitamin D supplements as well as calcium carbonate tablets twice daily. He has been compliant with the recommendation. 12/04/2024 Gout (ICD-10 - M10.9) Her uric a stephanie level is 7.2. He has no history of kidney stones and has her last attack of gout 3 years ago. She will be observed without medication at this time. She does not wish to take medication at this time. 12/06/2024 Benign paroxysmal positional vertigo due to bilateral vestibular disorder (ICD-10 - H81.13) She was advised to use an antihistamine and hydrate herself. 12/09/2024 Overweight (ICD-10 - E66.3) 12/25/2023 Overweight (ICD-10 - E66.3) She remains very slightly overweight. We have discussed diet and nutrition today. 12/28/2023 Overweight (ICD-10 - E66.3) She remains very slightly overweight. We have discussed diet and nutrition today. 02/15/2024 Overweight (ICD-10 - E66.3) She remains very slightly overweight. We have discussed diet and nutrition today. 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 04/19/2024 Gout (ICD-10 - M10.9) No attacks of gout have occurred since her last visit. 06/11/2024 Transient cerebral ischemia, unspecified type (ICD-10 - G45.9) She has a history of TIA in the past. Her neurological examination today is intact. The episode of vertigo yesterday is most likely benign positional vertigo, but she will be observed very carefully. If necessary, an MRI of the brain can be done if further symptoms evolve. 08/13/2024 Gout (ICD-10 - M10.9) Her uric a stephanie level is 7.2. He has no history of kidney stones and has her last attack of gout 3 years ago. She will be observed without medication at this time. She does not wish to take medication at this time. 12/04/2024 Vitamin D insufficiency (ICD-10 - E55.9) She has been continued on vitamin D supplements as well as calcium carbonate tablets twice daily. He has been compliant with the recommendation. 12/06/2024 Overweight (ICD-10 - E66.3) She is very slightly overweight. She will continue to maintain her weight at this level and exercise regularly. She will consume a healthy diet low in sodium animal fat and calories. 12/09/2024 Macrocytic anemia (ICD-10 - D53.9) 12/25/2023 Gout (ICD-10 - M10.9) No attacks of gout have occurred since her last visit. 12/28/2023 Osteopenia (ICD-10 - M85.80) She was continued on her calcium. 02/15/2024 Gout (ICD-10 - M10.9) No attacks of gout have occurred since her last visit. 04/11/2024 Osteopenia (ICD-10 - M85.80) She was continued on her calcium. 06/11/2024 Chronic leukopenia (ICD-10 - D72.819) Several recent white blood cell counts have been normal and this problem has resolved. 12/04/2024 Overweight (ICD-10 - E66.3) She is very slightly overweight. She will continue to maintain her weight at this level and exercise regularly. She will consume a healthy diet low in sodium animal fat and calories. 12/06/2024 Gout (ICD-10 - M10.9) Her uric a stephanie level is 7.2. He has no history of kidney stones and has her last attack of gout 3 years ago. She will be observed without medication at this time. She does not wish to take medication at this time. 12/25/2023 Benign paroxysmal positional vertigo due to bilateral vestibular disorder (ICD-10 - H81.13) She was advised to use an antihistamine and hydrate herself. 02/15/2024 Benign paroxysmal positional vertigo due to bilateral vestibular disorder (ICD-10 - H81.13) She was advised to use an antihistamine and hydrate herself. 06/11/2024 Vitamin D insufficiency (ICD-10 - E55.9) She continues on her supplement. 12/06/2024 Osteopenia (ICD-10 - M85.80) She was continued on her calcium. 02/15/2024 Vitamin D insufficiency (ICD-10 - E55.9) She continues on her supplement. 02/15/2024 Gout, unspecified (ICD-10 - M10.9) She has had no attacks of gout since her last visit. Plan Of Treatment Pending Test Test Name Order Date PROFILE, FASTING (COMPREHENSIVE METABOLI C) 07/30/2021 PROFILE, FASTING (COMPREHENSIVE METABOLI C) 06/11/2024 PROFILE, FASTING (COMPREHENSIVE METABOLI C) 07/18/2018 PROFILE, FASTING (COMPREHENSIVE METABOLI C) 05/17/2022 PROFILE, FASTING (COMPREHENSIVE METABOLI C) 12/09/2024 PROFILE, FASTING (COMPREHENSIVE METABOLI C) 07/28/2020 PROFILE, FASTING (COMPREHENSIVE METABOLI C) 08/13/2024 PROFILE, FASTING (COMPREHENSIVE METABOLI C) 02/07/2022 PROFILE, FASTING (COMPREHENSIVE METABOLI C) 08/10/2023 PROFILE, RANDOM (COMPREHENSIVE METABOLIC ) 12/25/2023 PROFILE, RANDOM (COMPREHENSIVE METABOLIC ) 07/18/2019 LIPID PANEL 07/18/2019 LIPID PANEL 07/18/2018 LIPID PANEL 07/28/2020 LIPID PANEL 02/07/2022 CBC w DIFF 02/07/2022 CBC w DIFF 07/30/2021 CBC w DIFF 07/18/2019 CBC w DIFF 05/17/2022 CBC w DIFF 12/09/2024 CBC w DIFF 07/18/2018 CBC w DIFF 08/13/2024 CBC w DIFF 07/28/2020 CBC w DIFF 12/25/2023 SED RATE (ESR) 12/09/2024 URINALYSIS (UA) 12/25/2023 URINALYSIS (UA) 01/23/2019 MAMMOGRAM DIGITAL BILATERAL SCREEN 12/13 VITAMIN D 25-OH TOTAL 07/30/2021 CBC WITH AUTO DIFF 08/10/2023 CBC WITH AUTO DIFF 06/11/2024 COLOGUARD 02/09/2023 Urinalysis 10/10/2022 Lipid Panel 08/10/2023 Lipid Panel 07/30/2021 Lipid Panel 08/13/2024 Lipase 12/09/2024 Vitamin D 25-OH Total 08/13/2024 Vitamin D 25-OH Total 08/10/2023 Next Appt Details Provider Name:Obie Albertorne, 02/19/2025 09:30:00 AM, [address] [place] [address] [address], [address], [place], [address], Insurance Providers Payer Name Payer Address Payer Phone Subscriber Number Group Number Insured Name Patient Relationship to Insured Coverage Start Date Coverage End Date [facility] [address] [place], [place] [id number] Li Sampson Self - patient is the insured Medical (General) History Medical History History ICD Code Osteopenia M85.80 Transient cerebral ischemia, unspecified type G45.9 Overweight E66.3 Gout M10.9 Dupuytren's contracture {'Vertigo': 'The patient has a history of vertigo, but it has been good recently.'} Surgical History Surgery Date(Month/Year) No history Right oophorectomy- benign cyst 1987 Hospitalization History Reason Date(Month/Year) No history
[2024-12-09 12:29] LABS: Alanine Aminotransferase 14 U/L (0-31); Albumin Level 4.5 g/dL (3.5-5.0); Alkaline Phosphatase 48 U/L (39-117); Anion Gap 13 (12-20); Aspartate Amino Transferase 24 U/L (5-31); Blood Urea Nitrogen 9 mg/dL (9-16); Calcium 9.7 mg/dL (8.4-10.2); Carbon Dioxide 26 mmol/L (22-29); Chloride 105 mmol/L (96-108); Estimated Glomerular Filt Rate > 60; Lipase 22 U/L (8-78); Potassium 3.8 mmol/L (3.3-5.1); Sodium 140 mmol/L (135-145); Total Protein 7.1 g/dL (6.5-8.0)
== END 2024-12-09 10:54 | disposition home or self-care (01) ==
LOC: HO.LAB 10:53
PROVIDERS: PCP Internal Medicine Medical Oncology; Visit Provider Internal Medicine Medical Oncology
DX: K57.92 Diverticulitis of intestine, part unspecified, without perforation or abscess without bleeding (principal); D53.9 Nutritional anemia, unspecified; E66.3 Overweight
CPT/HCPCS: 36415; 80053; 83690; 85025; 85652